=== PATIENT | female | born 1985 | race Caucasian/White ===

== ENCOUNTER → 2019-04-08 16:15 | Outpatient (BNVA) | payer MEDICAID, SELFPAY | PROVIDERS: Family Provider Nurse Practitioner; PCP Nurse Practitioner; Visit Provider Nurse Practitioner Family | DX: M79.641 Pain in right hand (principal) | CPT/HCPCS: 73130 ==

== ENCOUNTER → 2019-12-05 10:43 | Outpatient (BNVA) | payer MEDICAID, SELFPAY | PROVIDERS: Family Provider Nurse Practitioner; PCP Nurse Practitioner Family; Visit Provider Nurse Practitioner | DX: E04.9 Nontoxic goiter, unspecified (principal); D50.9 Iron deficiency anemia, unspecified | CPT/HCPCS: 80053; 84443; 85025; 86800 ==

== ENCOUNTER 2019-12-23 09:00 | Outpatient (CLI) | payer MEDICAID, SELFPAY ==
--- NOTE | 2019-12-23 09:30 | US_ITS ---
WS: [id number] THYROID ULTRASOUND HISTORY: enlarged thyroid COMPARISON: None available. Right lobe: 5.9 cm x 1.7 cm x 1.9 cm. Volume: 10.0 cm3. Enlarged diffuse heterogeneous gland with tiny nodules. No increased vascularity. Left lobe: 5.6 cm x 2.0 cm x 1.7 cm. Volume: 10.0 cm3. Mildly enlarged diffuse heterogeneous gland with tiny nodules which are ill-defined. No increased vas cularity. Isthmus: 0.6 cm. Enlarged. US/US thyroid [id number] IMPRESSION: Diffuse thyroid disease, most consistent with Parveen's.
== END 2019-12-23 09:01 | disposition home or self-care (01) ==
LOC: US 09:02
PROVIDERS: PCP Nurse Practitioner; Visit Provider Nurse Practitioner
DX: E04.9 Nontoxic goiter, unspecified (principal)
CPT/HCPCS: 76536

== ENCOUNTER → 2020-01-05 10:27 | Outpatient (BNVA) | payer MEDICAID, SELFPAY | PROVIDERS: PCP Nurse Practitioner; Visit Provider Nurse Practitioner Family | DX: L02.811 Cutaneous abscess of head [any part, except face] (principal); L65.9 Nonscarring hair loss, unspecified | CPT/HCPCS: 87070; 87077; 87184; 87205 ==

== ENCOUNTER → 2020-03-28 11:59 | Outpatient (BNVA) | payer MEDICAID, SELFPAY | PROVIDERS: PCP Nurse Practitioner; Visit Provider Nurse Practitioner Family | DX: E06.3 Autoimmune thyroiditis (principal); G25.81 Restless legs syndrome; E16.2 Hypoglycemia, unspecified; F41.8 Other specified anxiety disorders; M53.9 Dorsopathy, unspecified | CPT/HCPCS: 80053; 80061; 83036; 84443; 85025 ==

== ENCOUNTER → 2020-05-01 17:18 | Outpatient (BNVA) | payer MEDICAID, SELFPAY | PROVIDERS: PCP Nurse Practitioner; Visit Provider Nurse Practitioner Family | DX: R30.0 Dysuria (principal); M54.32 Sciatica, left side | CPT/HCPCS: 81000; 87491; 87591; 87661 ==

== ENCOUNTER → 2020-08-08 16:31 | Outpatient (BNVA) | payer MEDICAID, SELFPAY | PROVIDERS: PCP Family Medicine; Visit Provider Nurse Practitioner Family | DX: N39.0 Urinary tract infection, site not specified (principal); Z68.28 Body mass index [BMI] 28.0-28.9, adult; F17.210 Nicotine dependence, cigarettes, uncomplicated | CPT/HCPCS: 81003 ==

== ENCOUNTER 2020-10-22 11:30 | Outpatient (CLI) | payer MEDICAID, SELFPAY ==
--- NOTE | 2020-10-22 11:36 | XR_ITS ---
WS: [id number] CERVICAL SPINE TECHNIQUE: 3 views of the cervical spine CLINICAL INFORMATION: M54.2 - Cervicalgia COMPARISON: None. FINDINGS: Straightening with slight reversal the normal cervical lordosis. Mild spondylitic changes. Disc space narrowing worse at C6-7 with hypertrophic changes. Normal C1-C2 articulation. Normal prevertebral so ft tissues. XR/XR cervical spine 3V* [id number] IMPRESSION: 1. Straightening with slight reversal of the normal cervical lordosis. 2. Mild spondylitic changes with disc space narrowing worse at C6-7.
== END 2020-10-22 11:31 | disposition home or self-care (01) ==
PROVIDERS: PCP Nurse Practitioner Family; Visit Provider Nurse Practitioner Family
DX: M54.2 Cervicalgia (principal); G89.29 Other chronic pain
CPT/HCPCS: 72040

== ENCOUNTER → 2020-10-25 11:45 | Outpatient (BNVA) | payer MEDICAID, SELFPAY | PROVIDERS: PCP Nurse Practitioner Family; Visit Provider Nurse Practitioner Family | DX: E06.3 Autoimmune thyroiditis (principal) | CPT/HCPCS: 80053; 84443 ==

== ENCOUNTER → 2021-05-20 00:01 | Outpatient (BNVA) | payer MEDICAID, SELFPAY | PROVIDERS: PCP Nurse Practitioner Family; Visit Provider Nurse Practitioner Family | DX: M54.32 Sciatica, left side (principal); E06.3 Autoimmune thyroiditis; Z13.6 Encounter for screening for cardiovascular disorders; E16.2 Hypoglycemia, unspecified; F41.8 Other specified anxiety disorders; E55.9 Vitamin D deficiency, unspecified | CPT/HCPCS: 80053; 80061; 82306; 82607; 83036; 84439; 84443; 85025 ==

== ENCOUNTER → 2021-12-23 12:04 | Outpatient (BNVA) | payer MEDICAID, SELFPAY | PROVIDERS: PCP Nurse Practitioner Family; Visit Provider Nurse Practitioner Family | DX: J45.909 Unspecified asthma, uncomplicated (principal); R06.02 Shortness of breath; E06.3 Autoimmune thyroiditis; E55.9 Vitamin D deficiency, unspecified; M54.17 Radiculopathy, lumbosacral region; J98.01 Acute bronchospasm; J30.2 Other seasonal allergic rhinitis | CPT/HCPCS: 80053; 82306; 84443 ==

== ENCOUNTER → 2021-12-24 08:40 | Outpatient (BNVA) | payer MEDICAID, SELFPAY | PROVIDERS: PCP Nurse Practitioner Family; Visit Provider Nurse Practitioner Family | DX: J45.909 Unspecified asthma, uncomplicated (principal) | CPT/HCPCS: 71046 ==

== ENCOUNTER → 2022-03-19 09:38 | Outpatient (BNVA) | payer OTHER, MEDICAID, SELFPAY | PROVIDERS: PCP Nurse Practitioner Family; Visit Provider Nurse Practitioner Family | DX: S93.402A Sprain of unspecified ligament of left ankle, initial encounter (principal); X58.XXXA Exposure to other specified factors, initial encounter; M79.89 Other specified soft tissue disorders | CPT/HCPCS: 73610 ==

== ENCOUNTER → 2022-05-07 13:20 | Outpatient (BNVA) | payer OTHER, MEDICAID, SELFPAY | PROVIDERS: PCP Nurse Practitioner Family; Visit Provider Family Medicine | DX: E06.3 Autoimmune thyroiditis (principal) | CPT/HCPCS: 84443 ==

== ENCOUNTER 2022-07-20 04:36 | Emergency (ER) | payer OTHER, MEDICAID, SELFPAY ==
[2022-07-20 04:50] VITALS: BP 101/71; PULSE 60; RESP 16; TEMP 36.2; O2SAT 97; BMI 26.6
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
[2022-07-20 04:57] VITALS: BP 104/68; RESP 14; O2SAT 98
[2022-07-20 05:35] LABS: Basophils % 0.1 %; Hematocrit 38.5 % (37.0-47.0); Hemoglobin 12.3 g/dL (11.5-15.3); Lymphocytes # 0.9 10^3/uL (0.8-4.8); Lymphocytes % 4.9 %; Mean Corpuscular HGB Conc 31.9 g/dL (30.0-36.0); Mean Corpuscular Hemoglobin 28.3 pg (28.0-34.0); Mean Corpuscular Volume 88.7 fl (81-99); Mean Platelet Volume 12.3 fL (7.4-10.4); Monocytes # 0.7 10^3/uL (0.2-0.9); Neutrophils # 16.64 10^3/uL (1.8-7.7); Neutrophils % 90.5 %; Nucleated Red Blood Cells % 0 %; Platelet Count 145 10^3/cmm (130-400); Red Blood Count 4.34 10^6/uL (4.1-5.3); Red Cell Distribution Width 12.9 % (12.1-15.1); White Blood Count 18.4 10^3/uL (4.0-10.0)
[2022-07-20 05:44] LABS: Add Urine Microscopic? NO; Charge for UA Resulting for Rev
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
[2022-07-20 05:56] LABS: Alanine Aminotransferase 19 U/L (0-33); Alkaline Phosphatase 50 U/L (35-105); Anion Gap 14.4 (5-19); Aspartate Amino Transferase 27 U/L (0-32); Blood Urea Nitrogen 6 mg/dL (6-20); Calcium 8.5 mg/dL (8.5-10.5); Carbon Dioxide 24 mmol/L (22-29); Chloride 106 mmol/L (98-107); Globulin 2.4 g/dL (1.3-4.6); Glomerular Filtration Rate 94.2 mL/min (90-130); Glucose 91 mg/dL (65-115); Osmolality Calculated 289 mOsm/kg (285-295); Potassium 3.4 mmol/L (3.5-5.1); Sodium 141 mmol/L (136-145); Total Bilirubin 0.2 mg/dL (0.15-1.2); Total Protein 6.4 g/dL (6.6-8.7)
[2022-07-20 06:12] VITALS: PULSE 60; RESP 14; O2SAT 95
[2022-07-20 06:16] LABS: HCG Qualitative Urine. Negative (Negative)
[2022-07-20 06:29] LABS: Bilirubin Urine Neg (Negative); Blood Urine Neg (Negative); Glucose Urine UA Norm (Normal); Ketones Urine 1+ (Negative); Leukocyte Esterase Urine Negative (Negative); Nitrate Urine Negative (Negative); Protein Urine Neg (Negative); Urine Appearance Clear (CLEAR); Urine Color Yellow (Yellow); Urobilinogen Urine Norm (Negative); pH Urine 5 (5-7)
[2022-07-20 06:40] VITALS: BP 102/63; PULSE 72; RESP 14; TEMP 36.7; O2SAT 96
[2022-07-20 06:43] LABS: Alcohol Level < 10 mg/dL (0-10)
[2022-07-20 06:44] LABS: Amphetamines Screen Urine Negative (Negative); Barbiturates Screen Urine Negative (Negative); Benzodiazepines Screen Urine Negative (Negative); Cocaine Screen Urine Negative (Negative); Opiate Screen Urine Negative (Negative); PCP Screen Urine Negative (Negative); THC Screen Urine Positive (Negative)
== END 2022-07-20 06:42 | disposition home or self-care (01) ==
PROVIDERS: Emergency Provider Emergency Medicine; PCP Nurse Practitioner Family
DX: T68.XXXA Hypothermia, initial encounter (principal); X31.XXXA Exposure to excessive natural cold, initial encounter; S20.211A Contusion of right front wall of thorax, initial encounter; F17.210 Nicotine dependence, cigarettes, uncomplicated
CPT/HCPCS: 71045; 80053; 80306; 80307; 81003; 81025; 85025; 99284

== ENCOUNTER 2022-07-25 08:38 | Outpatient (CLI) | payer OTHER, MEDICAID, SELFPAY ==
--- NOTE | 2022-07-25 08:52 | XR_ITS ---
WS: [id number] PA and lateral chest, 07/25/2022 Clinical Data: R07.81 - Pleurodynia Comparison: None. Findings: No nodules, masses or effusions are seen. The heart is normal. The pulmonary vascularity is not remarkable. No pneumonia or pneumothorax is seen. XR/XR chest 2V* [id number] Impression: Negative chest.
--- NOTE | 2022-07-25 08:52 | XR_ITS ---
WS: [id number] Right chest rib detail, 2 views, 07/25/2022 Clinical Data: R07.81 - Pleurodynia Comparison: None. Findings: There may be fractures anterior aspects of the right 9th, 10th and 11th ribs. No pneumothorax is seen . There is no subcutaneous emphysema. XR/XR ribs RT 2V* [id number] Impression: Probable fractures of the anterior aspects of the right 9th, 10th and 11th ribs .
== END 2022-07-25 08:39 | disposition home or self-care (01) ==
PROVIDERS: PCP Nurse Practitioner Family; Visit Provider Nurse Practitioner Family
DX: R07.81 Pleurodynia (principal); W22.8XXA Striking against or struck by other objects, initial encounter; Y92.828 Other wilderness area as the place of occurrence of the external cause
CPT/HCPCS: 71046; 71100

== ENCOUNTER → 2022-09-24 13:56 | Outpatient (BNVA) | payer OTHER, MEDICAID, SELFPAY | PROVIDERS: PCP Nurse Practitioner Family; Visit Provider Nurse Practitioner Family | DX: R30.0 Dysuria (principal) | CPT/HCPCS: 81000 ==

== ENCOUNTER → 2022-11-03 09:21 | Outpatient (BNVA) | payer MEDICAID, SELFPAY | PROVIDERS: PCP Nurse Practitioner Family; Visit Provider Nurse Practitioner Family | DX: R05.9 Cough, unspecified (principal); J45.909 Unspecified asthma, uncomplicated; R06.02 Shortness of breath; E06.3 Autoimmune thyroiditis; J32.9 Chronic sinusitis, unspecified; E03.9 Hypothyroidism, unspecified | CPT/HCPCS: 84443; 87426 ==

== ENCOUNTER → 2023-07-03 11:28 | Outpatient (BNVA) | payer MEDICAID, SELFPAY | PROVIDERS: PCP Nurse Practitioner Family; Visit Provider Nurse Practitioner Family | DX: E03.9 Hypothyroidism, unspecified (principal) | CPT/HCPCS: 80053; 84443; 85025 ==

== ENCOUNTER → 2023-12-16 11:31 | Outpatient (BNVA) | payer OTHER, MEDICAID, SELFPAY | PROVIDERS: PCP Nurse Practitioner Family; Visit Provider Nurse Practitioner Family | DX: E03.9 Hypothyroidism, unspecified (principal) | CPT/HCPCS: 80053; 84443; 85025 ==